=== PATIENT | female | born 1985 | race Caucasian/White ===

== ENCOUNTER 2016-08-20 22:09 | Emergency (ER) | payer OTHER ==
--- NOTE | ~2016-08-20 | CR63 ---
[facility] A Service of [facility] RADIOLOGY TEXT RESULTS PATIENT: LETITIA NEWSOME LOCATION: [facility]FT[facility] : 83 UNIT #: [id number] AGE: [address]: Augustine Puckett MD SEX: F ORDER DR: [id number] [facility] [address] [place], [place] [address] [id number] E MR#: [id number] Acc #: [id number] NAME: LETITIA NEWSOME : 1985 SEX: F STUDY DATE/TIME: 08/20/2016 21:54 UNIT: [facility] ROOM: STUDY DESCRIPTION: CR Chest 2 View Attending Physician: Augustine Puckett M.D. Ordering Physician: Augustine Puckett M.D. Primary Care Physician: Art Vickers Jr., A.P.R.N. MEDICAL IMAGING REPORT This report is preliminary unless electronic signature is present EXAM 2 views chest, 08/20/2016 HISTORY Cough 2 days duration. Congestion. Short of air. Chest pain. Smoker 20 years. FINDINGS PA and lateral radiographs of the chest are presented. Comparison 07/22/2014. Heart and mediastinum normal in size and contour. The lungs are well inflated without evidence of acute infectious or inflammatory disease. No pleural effusion or pneumothorax. No suspicious nodule. Mild incompletely visualized dextroscoliosis lower thoracic and upper lumbar spine. Prior cholecystectomy. Dictated by... Brian Atkinson M.D. THIS IS AN ELECTRONICALLY VERIFIED REPORT Brian Atkinson M.D. at 08/22/2016 4:24 PM Neil TD: 08/21/2016 15:10 JOB #: [id number] MEDICAL IMAGING REPORT COPY
[~2016-08-20 22:09] MED LIST: EFFEXOR PO; KETOPROFEN PO; KLONOPIN1 MG PO; TRAZODONE HCL100 MG PO
[2016-08-20 22:16] LABS: INFLUENZA A POS (NEG); INFLUENZA B NEG (NEG)
== END 2016-08-20 22:56 | disposition home or self-care (01) ==
LOC: CFTX 22:09
PROVIDERS: Emergency Medicine
DX: J11.1 Influenza due to unidentified influenza virus with other respiratory manifestations (principal)
CPT/HCPCS: 71020; 87651; 87804; 99283

== ENCOUNTER 2016-10-13 12:27 | Emergency (ER) | payer OTHER | END 2016-10-13 12:29 | disposition home or self-care (01) | LOC: CFTX 12:27 | DX: H65.92 Unspecified nonsuppurative otitis media, left ear (principal); H60.11 Cellulitis of right external ear; F17.210 Nicotine dependence, cigarettes, uncomplicated | CPT/HCPCS: 99282 ==

== ENCOUNTER 2017-01-10 07:36 | Emergency (ER) | payer OTHER ==
[~2017-01-10] VITALS: Ht 157.5 cm; Wt 79.4 kg
[2017-01-10 08:23] LABS: URINE SOURCE CLEAN CATCH
[2017-01-10 08:26] LABS: BASOPHIL# 0.1 X10e3 (0-0.3); BASOPHIL% 0.6 % (0-2.5); EOSINOPHIL# 0.3 X10e3 (0-0.7); HEMATOCRIT 38.3 % (35.0-45.0); HEMOGLOBIN 12.7 gm/dL (12.0-16.0); LYMPHOCYTE# 2.4 X10e3 (1.0-3.5); LYMPHOCYTE% 17.8 % (17.0-45.0); MEAN CELL VOLUME 84.7 FL (83-96); MEAN CORPUSCULAR HGB CONC 33.1 g/dL (30-36); MEAN PLATELET VOLUME 6.9 FL (6.5-11.5); MONOCYTE% 7.8 % (3.0-12.0); NEUTROPHIL# 9.5 X10e3 (1.5-7.1); NEUTROPHIL% 71.8 % (40-75); PLATELET COUNT 484 X10e3 (140-420); RED BLOOD COUNT 4.53 X10e (3.90-5.30); RED CELL DISTRIBUTION WIDTH 14.6 % (11.0-15.5); WHITE BLOOD COUNT 13.3 X10e3 (4.0-10.5)
[2017-01-10 08:27] LABS: DIFF IND NO
[2017-01-10 08:56] LABS: URINE APPEARANCE CLEAR; URINE BILIRUBIN NEG (NEG); URINE BLOOD 2+ (NEG); URINE COLOR YELLOW; URINE GLUCOSE NEG (NEG); URINE KETONE NEG (NEG); URINE LEUKOCYTE ESTERASE 2+ (NEG); URINE NITRATE POS (NEG); URINE PROTEIN TRACE (NEG); URINE SPECIFIC GRAVITY 1.016 (1.003-1.035); URINE UROBILINOGEN 0.2 MG/DL (NEG)
[2017-01-10 08:58] LABS: ALBUMIN SERUM 3.6 g/dL (3.5-5.0); BILIRUBIN,TOTAL 0.6 mg/dL (0.2-2.0); BUN/CREATININE RATIO 11.66; CALCIUM SERUM 8.7 mg/dL (8.4-10.2); CREATININE SERUM 0.6 mg/dL (0.6-1.4); GLOM FILT RATE Estimated 120.6 mL/min (>60); POTASSIUM 3.3 mmol/L (3.5-5.1); PROTEIN TOTAL SERUM 7.3 g/dL (6.0-8.3)
[2017-01-10 09:02] LABS: CULTURE INDICATED? YES; URINE BACTERIA AUWI 3+ (NEGATIVE); URINE SQUAMOUS EPITHELIAL CELL OCC /[HPF]; UWBCS1 AUWI 50-100 (0-5)
== END 2017-01-10 10:27 | disposition home or self-care (01) ==
LOC: CED 07:36
PROVIDERS: Nurse Practitioner
DX: N10 Acute pyelonephritis (principal); E87.6 Hypokalemia; R73.09 Other abnormal glucose; F17.210 Nicotine dependence, cigarettes, uncomplicated; I10 Essential (primary) hypertension; Z90.49 Acquired absence of other specified parts of digestive tract
CPT/HCPCS: 36415; 80053; 81003; 82150; 84703; 85025; 87086; 87088; 87186; 96361; 96365; 96375; 99284; J0696; J2405